=== PATIENT | male | born 1950 | race Caucasian/White ===

== ENCOUNTER 2016-11-10 09:48 | Outpatient (CLI) | payer BC, MEDICARE ==
[~2016-11-10] VITALS: Ht 177.8 cm; Wt 93.0 kg
[~2016-11-10 09:48] MED LIST: ASPI1TAB PO; LISI-538 PO
[2016-11-10] MEDS ORDERED: NS 1,000 ML IV ONE (10:00)
[2016-11-10] MEDS ORDERED: PROPOFOL 200 MG/20 ML VIAL As Ordered ONE ×2 (11:17→11:28)
--- NOTE | 2016-11-10 11:34 | ROOR ---
Patient Name: Arturo Cook Procedure Date: 11/10/2016 11:11 AM Date of : 1950 Age: 66 Room: [facility] Gender: Male Note Status: Finalized Procedure: Total Colonoscopy to Cecum Indications: Screening for colorectal malignant neoplasm, Last colonoscopy: 2006 Providers: Corey Shirley MD Referring MD: BRENDON SIMS JR, MD Requesting Provider: Medicines: Monitored Anesthesia Care Complications: No immediate complications. Procedure: Pre-Anesthesia Assessment: - The heart rate, respiratory rate, oxygen saturations, blood pressure, adequacy of pulmonary ventilation, and response to care were monitored throughout the procedure. The Colonoscope was introduced through the anus and advanced to the cecum, identified by appendiceal orifice and ileocecal valve. The colonoscopy was performed without difficulty. The patient tolerated the procedure well. The quality of the bowel preparation was excellent. Findings: The perianal and digital rectal examinations were normal. Non-bleeding internal hemorrhoids were found during retroflexion. The hemorrhoids were small and Grade I (internal hemorrhoids that do not prolapse). Scattered small-mouthed diverticula were found in the recto-sigmoid colon, sigmoid colon and descending colon. The exam was otherwise without abnormality on direct and retroflexion views. Impression: - Non-bleeding internal hemorrhoids. - Diverticulosis in the recto-sigmoid colon, in the sigmoid colon and in the descending colon. - The examination was otherwise normal on direct and retroflexion views. - No specimens collected. - The exam was otherwise normal to the cecum. Recommendation: - Patient has a contact number available for emergencies. The signs and symptoms of potential delayed complications were discussed with the patient. Return to normal activities tomorrow. Written discharge instructions were provided to the patient. - High fiber diet. - Discharge patient to home. - Continue present medications. - Repeat colonoscopy in 10 years for screening purposes. - Return to referring physician. - The findings and recommendations were discussed with the patient's family. Corey Shirley MD Corey Shirley MD 11/10/2016 11:34:48 AM This report has been signed electronically. Number of Addenda: 0 Note Initiated On: 11/10/2016 11:11 AM Estimated Blood Loss: Estimated blood loss: none.
[2016-11-10 11:57] VITALS: BP 122/77
== END 2016-11-10 12:03 | disposition home or self-care (01) ==
LOC: M OPP 09:48
PROVIDERS: ATTEND Internal Medicine Gastroenterology
DX: Z12.11 Encounter for screening for malignant neoplasm of colon (principal); K64.0 First degree hemorrhoids; K57.30 Diverticulosis of large intestine without perforation or abscess without bleeding; I10 Essential (primary) hypertension; E78.5 Hyperlipidemia, unspecified; K59.00 Constipation, unspecified; R12 Heartburn; M19.90 Unspecified osteoarthritis, unspecified site; R06.83 Snoring; Z88.0 Allergy status to penicillin; Z79.82 Long term (current) use of aspirin; Z79.899 Other long term (current) drug therapy

== ENCOUNTER 2017-02-19 17:34 | Emergency (ER) | payer BC ==
[~2017-02-19] VITALS: Ht 177.8 cm; Wt 93.2 kg
[~2017-02-19 17:34] MED LIST changes: -COLA100C5 PO
[2017-02-19] MEDS ORDERED: NS 1,000 ML IV SCH (18:31)
[2017-02-19 18:51] LABS: BASO % 0.2 % (0.0-1.0); IMMATURE GRANULOCYTE % 0.4 % (0-0); LYMPH # 0.9 10^3/uL (1.5-4.5); LYMPH % 9.3 % (24.0-44.0); MEAN CORPUSCULAR HGB CONC 34.2 g/dl (32.0-36.5); MEAN CORPUSCULAR VOLUME 90.7 fl (80.0-96.0); MONO # 0.7 10^3/uL (0.0-0.8); MONO % 7.1 % (0.0-5.0); NEUTROPHILS # 8.2 10^3/uL (1.8-7.7); PLATELET COUNT, AUTOMATED 153 10^3/uL (150-450); RED CELL DISTRIBUTION WIDTH 12.6 % (11.5-14.5); WHITE BLOOD COUNT 9.9 10^3/uL (4.0-10.0)
[2017-02-19] MEDS ORDERED: GASTROGRAFIN SOLUTION 30ML PO ONE (18:55)
[2017-02-19 19:14] LABS: ALBUMIN 3.9 GM/DL (3.2-5.2); ALBUMIN/GLOBULIN RATIO 1.11 (1.00-1.93); ALKALINE PHOSPHATASE 49 U/L (45-117); ALT/SGPT 28 U/L (12-78); ANION GAP 9 MEQ/L (8-16); AST/SGOT 24 U/L (7-37); BILIRUBIN,DIRECT 0.2 MG/DL (0.0-0.2); BILIRUBIN,TOTAL 0.8 MG/DL (0.2-1.0); BLOOD UREA NITROGEN 11 MG/DL (7-18); CALCIUM LEVEL 8.2 MG/DL (8.8-10.2); CARBON DIOXIDE LEVEL 27 MEQ/L (21-32); CHLORIDE LEVEL 99 MEQ/L (98-107); CREATININE FOR GFR 0.76 MG/DL (0.70-1.30); GLOMERULAR FILTRATION RATE > 60.0 (>49); GLUCOSE, FASTING 102 MG/DL (80-110); POTASSIUM SERUM 3.8 MEQ/L (3.5-5.1); SODIUM LEVEL 135 MEQ/L (136-145); TOTAL PROTEIN 7.4 GM/DL (6.4-8.2)
[2017-02-19] MEDS ORDERED: GASTROGRAFIN SOLUTION 30ML (Q9963) PO ONE (19:25)
[2017-02-19] MEDS ORDERED: ISOVUE-370 76% 100ML VIAL (Q9967) As Ordered ONE (20:17)
--- NOTE | 2017-02-19 21:10 | REPUSA ---
CT angiogram of the chest Clinical statement: Chest pain and shortness of breath. Technique: Multiple axial CT images were obtained from the thoracic inlet through the upper abdomen a fter a bolus administration of nonionic intravenous contrast. Coronal and sagittal reconstructions we re also obtained. No comparison is available. Findings: The pulmonary arteries are well-opacified with contrast, with no intraluminal filling defec ts to suggest embolism. The thoracic aorta is unremarkable. Thyroid gland is within normal limits. Th ere is no thoracic lymphadenopathy. There are no pericardial or pleural effusions. The lungs are mervat r. Limited imaging of the upper abdomen is unremarkable. There is a simple right renal cyst. There ar e no suspicious osseous lesions. Impression: Unremarkable CT examination of the chest. No evidence of pulmonary embolism.
--- NOTE | 2017-02-19 21:10 | REPUSA ---
CT of the abdomen and pelvis with contrast Clinical statement: Pain. Technique: Multiple axial CT images were obtained from the base of the lungs through the floor of the pelvis utilizing 5 mm axial slices after administration of oral and nonionic intravenous contrast. C oronal and sagittal reconstructions were also obtained. No comparison is available. Findings: Chest: The visualized lung bases are clear. Abdomen: The liver, spleen, pancreas, kidneys, gallbladder, and adrenal glands are grossly unremarkab le. There is a large simple cyst in the lateral right kidney measuring 4.1 x 3.2 cm. The aorta is wit hin normal limits. There is no evidence of abdominal lymphadenopathy or ascites. There is a small umb ilical hernia. Pelvis: The bowel is unremarkable, with no obstructive or inflammatory changes. The urinary bladder c ontains several small stones. The other pelvic structures appear grossly intact. There is no evidence of pelvic lymphadenopathy or ascites. Bones: There are no suspicious osseous abnormalities seen. There is mild degenerative disc disease th roughout the lumbar spine and lower thoracic spine. This is most prominent from T11 through L3. Impression: 1. No acute abnormality to explain the patient's pain. 2. Large simple right renal cyst. 3. Multiple calculi within the urinary bladder. No evidence of hydronephrosis. 4. Small umbilical hernia without bowel involvement. 5. Mild spinal spondylosis.
[2017-02-19] MEDS ORDERED: ACETAMINOPHEN TAB 650MG DOSE (2X325MG) PO ONE (21:45)
[2017-02-19] MEDS ORDERED: FLEET ENEMA PR ONE (22:15)
[2017-02-19] MEDS ORDERED: DOCUSATE SODIUM 100 MG CAP PO ONE (22:45)
[2017-02-19] MEDS ORDERED: MIRALAX *UNIT DOSE* 17GM PACKET PO ONE (22:45)
[2017-02-19 23:14] VITALS: BP 120/74
[2017-02-19] MEDS ORDERED: COLA100C5 PO (23:19)
== END 2017-02-19 23:30 | disposition home or self-care (01) ==
LOC: M ED 17:34
DX: K59.00 Constipation, unspecified (principal); R50.9 Fever, unspecified; I10 Essential (primary) hypertension; K57.90 Diverticulosis of intestine, part unspecified, without perforation or abscess without bleeding; K42.9 Umbilical hernia without obstruction or gangrene; N28.1 Cyst of kidney, acquired; N20.9 Urinary calculus, unspecified; M47.9 Spondylosis, unspecified; Z79.82 Long term (current) use of aspirin; Z79.899 Other long term (current) drug therapy; Z88.0 Allergy status to penicillin; Z88.2 Allergy status to sulfonamides
CPT/HCPCS: 36415; 71260; 74177; 80048; 80076; 81001; 83690; 85025; 87088; 87186; 99284; Q9963; Q9967

== ENCOUNTER → 2017-02-19 | Outpatient (CLI) | payer BC ==
[~2017-02-19] MED LIST changes: +COLA100C5 PO
--- NOTE | 2017-02-19 17:01 | REP ---
Clinical: Abdominal distension and constipation. Technique: Upright view of the chest with supine and upright views of the abdomen and pelvis. Findings: Upright view of the chest suggests a 1.9 cm ovoid mass density in the left lung base which warrants contrast enhanced chest CT for further investigation. No free air below the diaphragm to suspect pneumoperitoneum. Supine and upright views of the abdomen and pelvis demonstrate nonspecific bowel gas pattern. Fecal stasis and constipation cannot be excluded. No organomegaly. Skeletal structures demonstrate age-related degenerative changes. Prostatic calcifications noted. Impression: 1. A 1.9 cm ovoid density in the left lung base warrants chest CT with contrast evaluation. 2. Nonspecific bowel gas pattern. Signed by Matthew Angeles MD 02/19/2017 04:53 P
[2017-02-19 19:27] LABS: BASO % 0.1 % (0.0-1.0); IMMATURE GRANULOCYTE % 0.3 % (0-0); LYMPH % 9.7 % (24.0-44.0); MEAN CORPUSCULAR HEMOGLOBIN 30.8 pg (27.0-33.0); MEAN CORPUSCULAR HGB CONC 33.5 g/dl (32.0-36.5); MEAN CORPUSCULAR VOLUME 91.9 fl (80.0-96.0); MONO # 0.7 10^3/uL (0.0-0.8); NEUTROPHILS # 8.3 10^3/uL (1.8-7.7); NEUTROPHILS % 82.9 % (36.0-66.0); PLATELET COUNT, AUTOMATED 167 10^3/uL (150-450); RED CELL DISTRIBUTION WIDTH 12.8 % (11.5-14.5); WHITE BLOOD COUNT 10.1 10^3/uL (4.0-10.0)
[2017-02-19 20:14] LABS: ALBUMIN 4.2 GM/DL (3.2-5.2); ALKALINE PHOSPHATASE 50 U/L (45-117); ALT/SGPT 30 U/L (12-78); ANION GAP 9 MEQ/L (8-16); AST/SGOT 26 U/L (7-37); BILIRUBIN,TOTAL 0.8 MG/DL (0.2-1.0); BLOOD UREA NITROGEN 11 MG/DL (7-18); CALCIUM LEVEL 8.4 MG/DL (8.8-10.2); CARBON DIOXIDE LEVEL 29 MEQ/L (21-32); CHLORIDE LEVEL 96 MEQ/L (98-107); CREATININE FOR GFR 0.96 MG/DL (0.70-1.30); GLOMERULAR FILTRATION RATE > 60.0 (>49); GLUCOSE, FASTING 98 MG/DL (80-110); POTASSIUM SERUM 3.9 MEQ/L (3.5-5.1); SODIUM LEVEL 134 MEQ/L (136-145); TOTAL PROTEIN 7.7 GM/DL (6.4-8.2)
== END ==
LOC: M WUC 16:26
PROVIDERS: ATTEND Physician Assistant
DX: R82.79 Other abnormal findings on microbiological examination of urine (principal); K59.00 Constipation, unspecified; R14.0 Abdominal distension (gaseous)

== ENCOUNTER → 2018-12-15 | Outpatient (REF) | payer BC ==
[~2018-12-15] MED LIST changes: -ASPI1TAB PO; +ASPI81TA26 PO; +COLA100C5 PO
== END ==
LOC: M LAB REF 17:06
PROVIDERS: ATTEND Nurse Practitioner Adult Health
DX: N39.0 Urinary tract infection, site not specified (principal)

== ENCOUNTER → 2019-07-10 | Outpatient (REF) | payer BC, MEDICARE | LOC: M LAB REF 13:39 | PROVIDERS: ATTEND Physician Assistant | DX: R10.30 Lower abdominal pain, unspecified (principal) ==

== ENCOUNTER 2020-03-31 11:29 | Emergency (ER) | payer BC, MEDICARE ==
[~2020-03-31] VITALS: Ht 177.8 cm; Wt 90.9 kg
[2020-03-31 14:11] VITALS: BP 135/80
--- NOTE | 2020-03-31 14:30 | REP ---
INDICATION: umbilical hernia assessment COMPARISON: None. TECHNIQUE: Real time jane scale ultrasound examination using linear high-frequency transducer. FINDINGS: A small reducible periumbilical fat containing hernia is identified with a peritoneal defect on Valsalva measuring 1.44 cm maximal diameter. IMPRESSION: Small reducible fat containing periumbilical hernia. <Electronically signed by Matthew Angeles > 03/31/20 [id number]
== END 2020-03-31 14:17 | disposition home or self-care (01) ==
LOC: M ED 11:29
DX: K42.9 Umbilical hernia without obstruction or gangrene (principal); I10 Essential (primary) hypertension; Z88.0 Allergy status to penicillin; Z88.2 Allergy status to sulfonamides; Z79.82 Long term (current) use of aspirin

== ENCOUNTER → 2020-04-17 | Outpatient (REF) | payer BC, MEDICARE ==
[~2020-04-17] MED LIST changes: -LISI-538 PO; +LISI20TA33 PO
== END ==
LOC: M WUC 12:58
PROVIDERS: ATTEND Physician Assistant
DX: R30.0 Dysuria (principal)

== ENCOUNTER → 2020-06-07 | Outpatient (CLI) | payer BC, MEDICARE | LOC: M LABSMTC 09:41 | PROVIDERS: ATTEND Anesthesiology | DX: Z01.818 Encounter for other preprocedural examination (principal); Z11.52 Encounter for screening for COVID-19 ==

== ENCOUNTER 2020-06-12 06:08 | Day surgery (SDC) | payer BC, MEDICARE ==
[~2020-06-12] VITALS: Ht 177.8 cm; Wt 93.0 kg
[~2020-06-12 06:08] MED LIST changes: +LR 1,000 ML IV ONE; +LevoFLOXacin IV 500 MG in IV 1 EA IV ONE
[2020-06-12] MEDS ORDERED: BUPIVACAINE HCL 0.25% 10ML VIAL As Ordered ONE (07:10)
[2020-06-12] MEDS ORDERED: BUPIVACAINE/EPIN 0.25% 30 ML VIAL As Ordered ONE (07:10)
[2020-06-12] MEDS ORDERED: BUPIVACAINE LIPOSOME/PF 1.3% 20ML VIAL (13.3MG/ML)(EXPAREL)(C9290 PER1MG) As Ordered ONE (07:10)
[2020-06-12] MEDS ORDERED: KETOROLAC 60MG 2ML VIAL As Ordered ONE (07:40)
[2020-06-12] MEDS ORDERED: MIDAZOLAM INJ 2MG/2ML VIAL (J2250 PER 1MG) As Ordered ONE (07:40)
[2020-06-12] MEDS ORDERED: LIDOCAINE 2% 100MG/5ML SDV (FOR ANES.) As Ordered ONE (07:40)
[2020-06-12] MEDS ORDERED: ROCURONIUM BROMIDE 50 MG/5 ML VIAL As Ordered ONE (07:40)
[2020-06-12] MEDS ORDERED: ONDANSETRON 4MG/2ML VIAL As Ordered ONE (07:40)
[2020-06-12] MEDS ORDERED: fentaNYL 100 MCG/2 ML INJECTION (J3010) As Ordered ONE (07:40)
[2020-06-12] MEDS ORDERED: dexameTHASONE 4 MG/ML 1ML VIAL (J1100 PER 1MG) As Ordered ONE (07:40)
[2020-06-12] MEDS ORDERED: propofoL 200 MG/20 ML VIAL As Ordered ONE (07:40)
[2020-06-12] MEDS ORDERED: PHENYLephrine 500MCG 5ML (100MCG/ML) SYRINGE As Ordered ONE (07:43)
[2020-06-12] MEDS ORDERED: ACETAMINOPHEN 1000MG 100ML IV BTL (OFIRMEV) (J0131 PER 10MG) As Ordered ONE (07:53)
[2020-06-12] MEDS ORDERED: SUGAMMADEX SODIUM 500 MG/5 ML VIAL (BRIDION) As Ordered ONE (07:54)
[2020-06-12] MEDS ORDERED: NS 1,000 ML IV SCH (08:50)
[2020-06-12] MEDS ORDERED: ONDANSETRON 4MG/2ML VIAL IV PRN (08:50)
[2020-06-12] MEDS ORDERED: LR 1,000 ML IV SCH (08:50)
[2020-06-12] MEDS ORDERED: fentaNYL 100 MCG/2 ML INJECTION (J3010) IV PRN (08:50)
[2020-06-12] MEDS ORDERED: NORCO, ANEXSIA 5/325MG TABLET (HYDROcodone/ACETAMINOPHEN) PO PRN (08:50)
[2020-06-12] MEDS ORDERED: oxyCODONE 5MG TAB PO PRN (08:50)
[2020-06-12 09:45] VITALS: BP 122/75
--- NOTE | 2020-06-13 08:04 | RO ---
OPERATIVE NOTE DATE OF OPERATION: 06/12/2020 PREOPERATIVE DIAGNOSIS: Umbilical hernia. POSTOPERATIVE DIAGNOSIS: Umbilical hernia. PROCEDURE: Umbilical hernia repair with ventral patch. SURGEON: Juan Goldman Jr, MD WORKERS COMPENSATION CLAIMS ANALYST: ANESTHESIA: General endotracheal anesthesia. EBL: Minimal. FLUIDS: Crystalloid. DESCRIPTION OF PROCEDURE: The patient was brought to the operating room, was given general anesthesia. After adequate anesthesia and preoperative antibiotics were given, the patient was prepped and draped in usual sterile fashion. A supraumbilical curvilinear incision was made with skin knife. Blunt dissection was carried down to hernia sac and fascia and the hernia sac was dissected out circumferentially. The skin above the umbilicus was somewhat attenuated in this area but eventually I was able to get nice plane right on the hernia sac itself and mobilize this down to the fascia circumferentially. The hernia sac was transected at the level of the fascia using electrocautery. Much of the preperitoneal fat was brought into the incision during the dissection and transected during this time. Circumferentially I was not able to feel any adhesions, masses, bowel on the posterior aspect of the peritoneum during this dissection. The ventral patch was placed in the peritoneum, brought up against the abdominal wall and tails were sutured superiorly and inferiorly with Ethibond. Ethibond was used to close the fascial defect transversely with [id number] sutures and 3-0 Vicryl was used to close the dermis, 4-0 Vicryl was used to approximate the skin. Steri-Strips and dry, sterile dressing was applied. The patient was awakened, extubated and brought to the recovery room awake, alert and hemodynamically stable.
== END 2020-06-12 09:45 | disposition home or self-care (01) ==
LOC: M SDC 06:08
PROVIDERS: ATTEND Surgery
DX: K42.9 Umbilical hernia without obstruction or gangrene (principal); I10 Essential (primary) hypertension; E78.5 Hyperlipidemia, unspecified; K57.92 Diverticulitis of intestine, part unspecified, without perforation or abscess without bleeding; K21.9 Gastro-esophageal reflux disease without esophagitis; Z79.82 Long term (current) use of aspirin; Z79.899 Other long term (current) drug therapy; Z88.0 Allergy status to penicillin; Z88.2 Allergy status to sulfonamides
CPT/HCPCS: 49585; 88302; C1781; C9290; J0131; J1100; J1885; J1956; J2250; J2370; J2405; J3010

== ENCOUNTER → 2020-10-09 | Outpatient (REF) | payer BC ==
[~2020-10-09] MED LIST changes: -LR 1,000 ML IV ONE; -LevoFLOXacin IV 500 MG in IV 1 EA IV ONE
== END ==
LOC: M LAB REF 16:35
PROVIDERS: ATTEND Internal Medicine
DX: R30.0 Dysuria (principal)

== ENCOUNTER → 2020-11-14 | Outpatient (REF) | payer BC | LOC: M WUC 09:57 | PROVIDERS: ATTEND Physician Assistant | DX: R30.0 Dysuria (principal) ==

== ENCOUNTER → 2021-01-18 | Outpatient (REF) | payer BC ==
[2021-01-18 17:15] LABS: BACTERIA, URINE AUTO NEGATIVE (NEGATIVE); RBC, URINE AUTO 6 /HPF (0-3); SQUAMOUS EPITHELIAL CELL UR AU 0 /HPF (0-6); WBC, URINE AUTO 117 /HPF (0-3)
== END ==
LOC: M LAB REF 16:49
PROVIDERS: ATTEND Physician Assistant Medical
DX: N39.0 Urinary tract infection, site not specified (principal)

== ENCOUNTER → 2021-06-27 | Outpatient (REF) | payer BC ==
[2021-06-27 12:50] LABS: BACTERIA, URINE AUTO 1+ (NEGATIVE); MUCUS, URINE SMALL (NEGATIVE); RBC, URINE AUTO 4 /HPF (0-3); SQUAMOUS EPITHELIAL CELL UR AU 0 /HPF (0-6); WBC, URINE AUTO TNTC /HPF (0-3)
== END ==
LOC: M LAB REF 11:59
PROVIDERS: ATTEND Internal Medicine
DX: N39.0 Urinary tract infection, site not specified (principal)

== ENCOUNTER → 2021-08-21 | Outpatient (CLI) | payer BC ==
[~2021-08-21] MED LIST changes: +ISOVUE-370 76% 100ML VIAL ONE
== END ==
LOC: M PLAIMG 10:37
PROVIDERS: ATTEND Internal Medicine
DX: N13.2 Hydronephrosis with renal and ureteral calculous obstruction (principal); N30.00 Acute cystitis without hematuria; N28.1 Cyst of kidney, acquired; N40.0 Benign prostatic hyperplasia without lower urinary tract symptoms
CPT/HCPCS: 74178; Q9967

== ENCOUNTER → 2021-08-23 | Outpatient (REF) | payer BC, MEDICARE ==
[~2021-08-23] MED LIST changes: -ISOVUE-370 76% 100ML VIAL ONE
[2021-08-23 18:46] LABS: APPEARANCE, URINE CLEAR (CLEAR); BACTERIA, URINE AUTO NEGATIVE (NEGATIVE); BILIRUBIN, URINE AUTO NEGATIVE (NEGATIVE); BLOOD, URINE BLOOD NEGATIVE (NEGATIVE); COLOR, URINE YELLOW (YELLOW); GLUCOSE, URINE (UA) AUTO NEGATIVE (NEGATIVE); KETONE, URINE AUTO NEGATIVE (NEGATIVE); LEUKOCYTE ESTERASE, URINE AUTO 1+ (NEGATIVE); MUCUS, URINE SMALL (NEGATIVE); NITRITE, URINE AUTO NEGATIVE (NEGATIVE); PROTEIN, URINE AUTO NEGATIVE (NEGATIVE); RBC, URINE AUTO 0 /HPF (0-3); SPECIFIC GRAVITY URINE AUTO 1.019 (1.002-1.035); SQUAMOUS EPITHELIAL CELL UR AU 0 /HPF (0-6); UROBILINOGEN, URINE AUTO 0.2 mg/dL (0.0-2.0); WBC, URINE AUTO 4 /HPF (0-3)
== END ==
LOC: M SMT 17:45
PROVIDERS: ATTEND Physician Assistant
DX: N39.0 Urinary tract infection, site not specified (principal)

== ENCOUNTER → 2022-11-21 | Outpatient (REF) | payer BC, MEDICARE | LOC: M LAB REF 16:29 | PROVIDERS: ATTEND Internal Medicine | DX: Z11.59 Encounter for screening for other viral diseases (principal) ==

== ENCOUNTER → 2022-12-03 | Outpatient (REF) | payer BC, MEDICARE | LOC: M LAB REF 16:36 | PROVIDERS: ATTEND Nurse Practitioner Family | DX: L03.011 Cellulitis of right finger (principal) ==

== ENCOUNTER → 2023-10-02 | Outpatient (REF) | payer MEDICARE, BC ==
[2023-10-02 13:54] LABS: APPEARANCE, URINE HAZY (CLEAR); BACTERIA, URINE AUTO NEGATIVE (NEGATIVE); BILIRUBIN, URINE AUTO NEGATIVE (NEGATIVE); BLOOD, URINE BLOOD NEGATIVE (NEGATIVE); COLOR, URINE YELLOW (YELLOW); GLUCOSE, URINE (UA) AUTO NEGATIVE (NEGATIVE); KETONE, URINE AUTO NEGATIVE (NEGATIVE); LEUKOCYTE ESTERASE, URINE AUTO 3+ (NEGATIVE); MUCUS, URINE SMALL (NEGATIVE); NITRITE, URINE AUTO NEGATIVE (NEGATIVE); PROTEIN, URINE AUTO NEGATIVE (NEGATIVE); RBC, URINE AUTO 4 /HPF (0-3); SPECIFIC GRAVITY URINE AUTO 1.018 (1.002-1.035); SQUAMOUS EPITHELIAL CELL UR AU 0 /HPF (0-6); UROBILINOGEN, URINE AUTO 0.2 mg/dL (0.0-2.0); WBC, URINE AUTO 109 /HPF (0-3)
== END ==
LOC: M SMT 12:57
PROVIDERS: ATTEND Physician Assistant
DX: R30.0 Dysuria (principal)

== ENCOUNTER → 2024-04-13 | Outpatient (CLI) | payer BC, MEDICARE ==
[~2024-04-13] MED LIST changes: +ISOVUE-370 76% 100ML VIAL As Ordered ONE
== END ==
LOC: M RAD 13:07
PROVIDERS: ATTEND Internal Medicine
DX: R10.12 Left upper quadrant pain (principal); Z87.442 Personal history of urinary calculi; N28.1 Cyst of kidney, acquired; K57.30 Diverticulosis of large intestine without perforation or abscess without bleeding; K40.20 Bilateral inguinal hernia, without obstruction or gangrene, not specified as recurrent; N21.0 Calculus in bladder
CPT/HCPCS: 74178; Q9967

== ENCOUNTER → 2024-10-07 | Outpatient (CLI) | payer BC, MEDICARE ==
[~2024-10-07] MED LIST changes: +CYCL1SOL14 OP; +ERYT5OIN25 OP; -ISOVUE-370 76% 100ML VIAL As Ordered ONE; +TAMS1CAP17
== END ==
LOC: M WUC 13:25
PROVIDERS: ATTEND Nurse Practitioner Adult Health
DX: M17.12 Unilateral primary osteoarthritis, left knee (principal); M25.562 Pain in left knee

== ENCOUNTER → 2024-12-24 | Outpatient (CLI) | payer BC | LOC: M RAD 08:36 | PROVIDERS: ATTEND Neuromusculoskeletal Medicine, Sports Medicine | DX: S83.242A Other tear of medial meniscus, current injury, left knee, initial encounter (principal); M17.12 Unilateral primary osteoarthritis, left knee; Y93.9 Activity, unspecified; Y92.9 Unspecified place or not applicable ==

== ENCOUNTER 2025-03-07 10:25 | Day surgery (SDC) | payer BC ==
[~2025-03-07] VITALS: Ht 177.8 cm; Wt 96.7 kg
[~2025-03-07 10:25] MED LIST changes: -TAMS1CAP17; +TAMS1CAP17 PO; +TIMO0.5S20
[2025-03-07] MEDS: LR 1,000 ML IV SCH (11:07)
[2025-03-07 11:32] LABS: INR 0.95
[2025-03-07] MEDS ORDERED: LIDOCAINE 2% 100 MG/5 ML SDV (FOR ANES.) As Ordered ONE (12:09)
[2025-03-07] MEDS ORDERED: MIDAZOLAM INJ 2 MG/2 ML VIAL As Ordered ONE (12:10)
[2025-03-07] MEDS ORDERED: ONDANSETRON 4MG/2ML VIAL As Ordered ONE (12:11)
[2025-03-07] MEDS ORDERED: dexAMETHasone 4 MG/ML 1 ML VIAL As Ordered ONE (12:11)
[2025-03-07] MEDS ORDERED: ACETAMINOPHEN 1000MG/100ML IV BAG As Ordered ONE (12:17)
[2025-03-07] MEDS: ceFAZolin SOD 2 GM IV ONCE IV ONE (15:18)
[2025-03-07] MEDS ORDERED: KETOROLAC 30 MG/ML 1 ML VIAL As Ordered ONE (15:43)
[2025-03-07] MEDS: LIDOCAINE W/EPINEPHrine 1% 20 ML VIAL As Ordered ONE (15:55)
[2025-03-07] MEDS: MORPHINE 10 MG/ML 1 ML VIAL As Ordered ONE (16:40)
[2025-03-07] MEDS ORDERED: LR 1,000 ML IV SCH (16:55)
[2025-03-07] MEDS ORDERED: ONDANSETRON 4MG/2ML VIAL IV PRN (16:55)
[2025-03-07] MEDS ORDERED: HYDROMORPHONE HCL 0.5 MG/0.5 ML SYRINGE IV PRN (16:55)
[2025-03-07 17:30] VITALS: BP 133/85; TEMP 97.4; O2SAT 94
== END 2025-03-07 18:02 | disposition home or self-care (01) ==
LOC: M SDC 10:25
PROVIDERS: ATTEND Neuromusculoskeletal Medicine, Sports Medicine
DX: S83.232A Complex tear of medial meniscus, current injury, left knee, initial encounter (principal); M17.12 Unilateral primary osteoarthritis, left knee; M65.962 Unspecified synovitis and tenosynovitis, left lower leg; X58.XXXA Exposure to other specified factors, initial encounter; M23.42 Loose body in knee, left knee; Y93.9 Activity, unspecified; Y92.9 Unspecified place or not applicable; I10 Essential (primary) hypertension; K21.9 Gastro-esophageal reflux disease without esophagitis; N40.0 Benign prostatic hyperplasia without lower urinary tract symptoms; Z79.82 Long term (current) use of aspirin; Z79.899 Other long term (current) drug therapy; Z90.89 Acquired absence of other organs; Z88.2 Allergy status to sulfonamides; Z88.0 Allergy status to penicillin
CPT/HCPCS: 29881; 36415; 85610; 85730; J0131; J0665; J0688; J1100; J1885; J2250; J2405; J3010